=== PATIENT | male | born 1965 | race Caucasian/White ===

== ENCOUNTER 2020-08-23 13:26 | Outpatient (CLI) | payer OTHER | END 2020-08-23 13:27 | disposition critical access hospital (66) | LOC: EMS 13:26 | DX: J39.2 Other diseases of pharynx (principal) | CPT/HCPCS: A0425; A0429 ==

== ENCOUNTER 2020-08-23 13:48 | Emergency (ER) | payer OTHER ==
[2020-08-23] MEDS ORDERED: SODIUM CHLORIDE INHALATION 3 ML NEB INH STA (14:05)
[2020-08-23] MEDS ORDERED: RACEPINEPHRINE 2.25% NEB INH STA (14:05)
[2020-08-23] MEDS ORDERED: KETOROLAC 30 MG/ML VIAL IVP STA (14:05)
[2020-08-23] MEDS ORDERED: cefTRIAXone 2 GM VIAL IVP STA (14:05)
[2020-08-23] MEDS ORDERED: SODIUM CHLORIDE 0.9% 1,000 ML IV STA (14:05)
[2020-08-23] MEDS ORDERED: DEXAMETHASONE 10 MG/ML VIAL IVP STA ×2 (14:05→15:43)
--- NOTE | 2020-08-23 14:07 | ED Physician Documentation ---
PD HPI HEENT - Stated complaint Stated Complaint: throat swelling - Chief complaint Chief Complaint: Heent - History obtained from History obtained from: Patient, EMS - History of Present Illness Timing - onset: Yesterday Timing - details: Gradual onset (Sore throat and feeling of swollen glands in the neck yesterday with increasing pain today and then a feeling of swelling in the back of the throat. Seen at urgent care earlier with a negative strep test. Subsequently however the swelling increased and return to the walk-in. Referred to ER.) Location: Throat (feeling of pain with developing swelling posterior/left tonsillar areas.) Worsens: Swalllowing Associated symptoms: No: Fever, Congestion, Facial swelling, Cough Similar symptoms before: Has not had sx before Recently seen: Clinic (walk in earlier today and then again [employer] and referred to ER due to appearance of swelling in uvula/back of throat with slight garbled voice. Given IM epi at the clinic.) Review of Systems Constitutional: denies: Fever, Chills, Myalgias Nose: denies: Rhinorrhea / runny nose, Congestion Throat: reports: Sore throat. denies: Oral lesions / sores (but is noting swell ing and redness of uvula and feeling of swelling around left tonsil.) Cardiac: denies: Chest pain / pressure Respiratory: denies: Cough GI: denies: Nausea, Vomiting Skin: denies: Rash, Lesions Neurologic: denies: Focal weakness, Numbness PD PAST MEDICAL HISTORY - Past Medical History Cardiovascular: None Respiratory: None Neuro: None Endocrine/Autoimmune: None HEENT: None - Present Medications Home Medications: Ambulatory Orders Medication Instructions Recorded Confirmed Albuterol Sulfate [Proair Hfa 1 - 2 puffs INH Q4H PRN 08/23/20 08/23/20 Inhaler] cephALEXin [Keflex] 500 mg PO QID #28 cap 08/23/20 dexAMETHasone [Decadron] 4 mg PO DAILY #5 tablet 08/23/20 diphenhydrAMINE ELIXIR [Benadryl 25 mg PO Q6H PRN #240 ml 08/23/20 Elixir] - Allergies Allergies/Adverse Reactions: Allergies Allergy/AdvReac Type Severity Reaction Status Date / Time No Known Drug Allergies Allergy Verified 08/23/20 13:52 PD ED PE NORMAL - Vitals Vital signs reviewed: Yes - General General: Alert and oriented X 3, Well developed/nourished, Other (he appears uncomfortable with swallowing. Has some mild garbling of voice, but no laboring of breathing. ) - HEENT HEENT: Ears normal, Moist mucous membranes, Dentition benign. No: Pharynx benign (no noted swelling of lips, tongue nor sublingual. The uvula has redness with some boggy edema. Left tonsillar and peritonsillar area with redness and some swelling, with particular medial peritonsillar swelling, without apparent fluctuance touching at it. No particular midline deviation of the uvula) - Neck Neck: Supple, no meningeal sign, Other (anterior adenopathy, left more than right. ) - Cardiac Cardiac: RRR, No murmur - Respiratory Respiratory: Clear bilaterally - Derm Derm: Normal color, Warm and dry - Neuro Neuro: Alert and oriented X 3, No motor deficit, Normal speech Results - Vitals Vitals: Vital Signs - 24 hr 08/23/20 08/23/20 08/23/20 13:52 14:36 14:45 Temperature 37.2 C Heart Rate 104 H 105 H 22 L Respiratory 20 18 101 H Rate Blood Pressure 173/109 H 138/95 H O2 Saturation 97 99 08/23/20 08/23/20 08/23/20 15:05 15:35 16:09 Temperature 37.2 C Heart Rate 98 97 97 Respiratory 18 18 20 Rate Blood Pressure 121/90 H 127/85 H 142/94 H O2 Saturation 98 98 97 Oxygen O2 Source Room air - Labs Labs: Laboratory Tests 08/23/20 08/23/20 08/23/20 14:30 14:30 14:30 WBC 12.7 H RBC 4.78 Hgb 15.3 Hct 44.7 MCV 93.5 MCH 32.0 H MCHC 34.2 RDW 12.4 Plt Count 240 MPV 10.2 Neut # (Auto) 9.9 H Lymph # (Auto) 1.7 Hawkins # (Auto) 1.0 Eos # (Auto) 0.0 Baso # (Auto) 0.1 Absolute Nucleated RBC 0.00 Nucleated RBC % 0.0 Sodium 140 Potassium 4.3 Chloride 104 Carbon Dioxide 26 Anion Gap 10.0 BUN 20 Creatinine 1.0 Estimated GFR (MDRD) 78 L Glucose 105 H Calcium 9.2 Group A Strep Rapid Negative PD MEDICAL DECISION MAKING - ED course Complexity details: re-evaluated patient (he is having just mild improvement in symptoms, but voice is not distorted after period of time. Mainly he is not feeling any worse with ER observation time. Seems reasonable to discharge home. ), considered differential (has apparent peritonsillitis without obvious fluctuant abscess. Uvulitis as well. Presume atypical strep (most common for this would be Group C strep or such). It does appear bacterial and not allergic. He is not on BLAS-I. ), d/w patient ED course: Givern IV steroids with then second dose too, along with 2 G Rocephin, and Toradol. Less painful. No worsening swelling with prolonged time in ER to assess for worsening. Departure - Departure Disposition: 01 Home, Self Care Clinical Impression: Peritonsillitis Condition: Stable Record reviewed to determine appropriate education?: Yes Instructions: ED Peritonsillar Infec Abx No I andD Prescriptions: diphenhydrAMINE ELIXIR [Benadryl Elixir] 25 mg PO Q6H PRN #240 ml PRN Reason: Pain dexAMETHasone [Decadron] 4 mg PO DAILY #5 tablet cephALEXin [Keflex] 500 mg PO QID #28 cap Comments: This appears to be an infection around the tonsil causing some localized swelling of that as well as the uvula. There is redness there. This is more indicative of local infection rather than allergic reaction or such. Decadron steroid daily for the next 5 days. Keflex 4 times a day for the next week. You can use Tylenol or ibuprofen if needed for pains. Diphenhydramine liquid can also be useful for the topical discomfort and sometimes will help w ith some of the swelling. At this point there is not worsening of your symptoms. I would anticipate improvement through the afternoon and evening and into tomorrow. It will probably be several days for resolution. Stay well-hydrated. Food as tolerated. Return if feeling of increased swelling, trouble swallowing or breathing or other concerns. Discharge Date/Time: 08/23/20 16:22
[2020-08-23 14:35] LABS: BASOPHILS # (AUTO) 0.1 10^3/uL (0.0-0.1); BASOPHILS % (AUTO) 0.4 %; EOSINOPHILS % (AUTO) 0.3 %; HCT - HEMATOCRIT 44.7 % (42.0-52.0); HGB - HEMOGLOBIN 15.3 g/dL (14.0-18.0); LYMPHOCYTES # (AUTO) 1.7 10^3/uL (1.5-3.5); LYMPHOCYTES % (AUTO) 13.1 %; MEAN CORPUSCULAR HGB CONC 34.2 g/dL (32.0-36.0); MEAN CORPUSCULAR VOLUME 93.5 fL (80.0-94.0); MEAN PLATELET VOLUME 10.2 fL (7.4-11.4); MONOCYTES % (AUTO) 7.8 %; NEUTROPHILS # (AUTO) 9.9 10^3/uL (1.5-6.6); NEUTROPHILS % (AUTO) 78.1 %; PLT - PLATELET COUNT 240 10^3/uL (130-450); RED BLOOD COUNT 4.78 10^6/uL (4.70-6.10); RED CELL DISTRIBUTION WIDTH 12.4 % (12.0-15.0); WHITE BLOOD COUNT 12.7 x10^3/uL (4.8-10.8)
[2020-08-23 14:44] LABS: CALCIUM 9.2 mg/dL (8.5-10.3); POTASSIUM 4.3 mmol/L (3.5-5.0)
[2020-08-23 14:49] LABS: RAPID STREP SCREEN Negative (Negative)
[2020-08-23 16:10] VITALS: BP 142/94
== END 2020-08-23 16:22 | disposition home or self-care (01) ==
LOC: ED 13:48
DX: J03.90 Acute tonsillitis, unspecified (principal); K12.2 Cellulitis and abscess of mouth
CPT/HCPCS: 36415; 80048; 85025; 87070; 87430; 94640; 96374; 96375; 99284